=== PATIENT | female | born 1965 | race Two or more races ===

== ENCOUNTER 2024-09-14 18:41 | Emergency (ER) | payer BC ==
[~2024-09-14] VITALS: Ht 162.6 cm; Wt 83.9 kg
[2024-09-14 19:37] LABS: *BILIRUBIN,URIN NEGATIVE (NEGATIVE); *CLARITY,URINE CLEAR (CLEAR); *COLOR,URINE YELLOW (YELLOW); *KETONES,URINE NEGATIVE (NEGATIVE); *PROTEIN,URINE 1+ (NEGATIVE); LEUKOCYTE ESTERASE ,URINE 1+ (NEGATIVE); NITRITE, URINE NEGATIVE (NEGATIVE); UGLUCOSE NEGATIVE (NEGATIVE)
[2024-09-14 19:46] LABS: *BLOOD, URINE TRACE (NEGATIVE)
[2024-09-14 20:10] LABS: BASOPHILS % (AUTO) 0.5 % (0.0-2.0); EOSINOPHILS % (AUTO) 0.5 % (0.0-7.0); HEMATOCRIT 41.6 % (31.2-41.9); HEMOGLOBIN 14.4 g/dL (10.9-14.3); LYMPHOCYTES # (AUTO) 1.7 K/uL (0.8-4.8); LYMPHOCYTES % (AUTO) 17.1 % (20.5-51.5); MEAN CORPUSCULAR HEMOGLOBIN 31.1 uug (24.7-32.8); MEAN CORPUSCULAR HGB CONC 35 g/dL (32.3-35.6); MEAN CORPUSCULAR VOLUME 90.2 fL (75.5-95.3); MONOCYTES # (AUTO) 0.7 K/uL (0.1-1.30); NEUTROPHILS # (AUTO) 7.4 K/uL (1.8-8.9); NEUTROPHILS % (AUTO) 74.9 % (38.5-71.5); PLATELET COUNT (AUTO) 271 K/uL (179-408); RED BLOOD CELL COUNT(AUTO) 4.61 MIL/uL (3.63-4.92); RED CELL DISTRIBUTION WIDTH 13.5 % (12.3-17.7); WHITE BLOOD COUNT (AUTO) 9.9 K/uL (3.8-11.8)
[2024-09-14 20:24] LABS: CALCIUM 8.6 mg/dL (8.5-10.1); CREATININE 0.8 mg/dL (0.6-1.3); POTASSIUM 4.1 mmol/L (3.5-5.1)
[2024-09-14 20:26] LABS: DIFFERENTIAL COMMENT 1
[2024-09-14 20:29] LABS: ALBUMIN 3.4 g/dL (3.4-5.0); BILIRUBIN,DIRECT 0.2 mg/dL (0.0-0.2); TOTAL PROTEIN, SERUM 8.1 g/dL (6.4-8.2)
[2024-09-14 20:42] LABS: BACTERIA,URINE MODERATE /HPF (NONE SEEN); SQUAMOUS EPITHELIAL CELL,UR MODERATE /HPF (NONE SEEN)
[2024-09-14] MEDS ORDERED: KETOROLAC TROMETHAMINE 30 MG INJ ONE (21:14)
[2024-09-14] MEDS: KETOROLAC TROMETHAMINE 30 MG INJ IM ONE (21:16)
[2024-09-14] MEDS ORDERED: AMOX-430 PO (21:41)
[2024-09-14] MEDS ORDERED: NAPR-1196 PO (21:41)
[2024-09-14] MEDS ORDERED: AMOXICILLIN-CLAVUL 875-125MG TABLET ONE (21:53)
[2024-09-14] MEDS: AMOXICILLIN-CLAVUL 875-125MG TABLET PO ONE (21:55)
[2024-09-14 22:16] VITALS: BP 138/88; TEMP 98.2; O2SAT 100
== END 2024-09-14 22:16 | disposition home or self-care (01) ==
LOC: ER 18:41
DX: K57.32 Diverticulitis of large intestine without perforation or abscess without bleeding (principal); N39.0 Urinary tract infection, site not specified; B95.2 Enterococcus as the cause of diseases classified elsewhere; Z90.49 Acquired absence of other specified parts of digestive tract
CPT/HCPCS: 99285; 74176; 80076; 80048; 81001; 83690; 85025; 36415; 96372; 87086; J1885; A4606; A4663